=== PATIENT | male | born 1945 | race Caucasian/White ===

== ENCOUNTER 2018-06-05 09:21 | Outpatient (REF) | payer MEDICARE, OTHER, SELFPAY ==
[2018-06-05 21:09] LABS: ALT 32 U/L (12-78); AST 16 U/L (15-37); Albumin 3.9 g/dL (3.4-5.0); Alkaline Phosphatase 64 U/L (46-116); Anion Gap 9.4 mmol/L (3-11); BUN 21 mg/dL (7-18); Bilirubin, Total 0.8 mg/dL (0.2-1.0); CO2 25.6 mmol/L (21.0-32.0); CREATININE 1.04 mg/dL (0.70-1.30); Calcium 8.6 mg/dL (8.5-10.1); Chloride 105 mmol/L (98-107); Cholesterol 275 mg/dL (50-200); Glucose 112 mg/dL (70-100); HDL Cholesterol 49 mg/dL (40-60); LDL CHOLESTEROL 196 mg/dL (<100); Potassium 4.5 mmol/L (3.5-5.1); Sodium 140 mmol/L (136-145); Total Protein 7.2 g/dL (6.4-8.2); Triglyceride 140 mg/dL (30-150)
[2018-06-05 21:22] LABS: Hemoglobin A1C 6.4 % (4.5-6.2)
== END 2018-06-05 09:41 ==
LOC: NCHCN 09:21
PROVIDERS: PCP Physician Assistant Medical; Visit Provider Physician Assistant Medical
DX: E78.5 Hyperlipidemia, unspecified (principal); R73.01 Impaired fasting glucose
CPT/HCPCS: 80053; 80061; 83721; 83036

== ENCOUNTER 2018-12-04 23:38 | Outpatient (REF) | payer MEDICARE, OTHER, SELFPAY ==
[2018-12-04 21:16] LABS: BUN 22 mg/dL (7-18); CREATININE 1.05 mg/dL (0.70-1.30); Calcium 9.3 mg/dL (8.5-10.1); Chloride 104 mmol/L (98-107); Glucose 132 mg/dL (70-100); Potassium 4.4 mmol/L (3.5-5.1); Sodium 141 mmol/L (136-145)
[2018-12-04 21:23] LABS: Hemoglobin A1C 6.6 % (4.5-6.2)
== END 2018-12-04 23:58 ==
LOC: NCHCN 23:38
PROVIDERS: PCP Physician Assistant Medical; Visit Provider Physician Assistant Medical
DX: R73.01 Impaired fasting glucose (principal)
CPT/HCPCS: 80048; 83036

== ENCOUNTER 2018-12-27 01:14 | Outpatient (CLI) | payer MEDICARE, OTHER, SELFPAY ==
--- NOTE | 2018-12-27 08:07 | DI.RAD_ITS ---
SYMPTOM/DIAGNOSIS: RT WRIST PAIN, M25.531 RIGHT WRIST; There are degenerative changes involving the first metacarpal multangular and second metacarpal multangular joints. Elsewhere minimal degenerative changes involving the carpus are identified. There is no evidence of a fracture or dislocation.
== END 2018-12-27 01:34 ==
PROVIDERS: PCP Physician Assistant Medical; Visit Provider Physician Assistant Medical
DX: M25.531 Pain in right wrist (principal); M18.11 Unilateral primary osteoarthritis of first carpometacarpal joint, right hand; M19.031 Primary osteoarthritis, right wrist
CPT/HCPCS: 73110

== ENCOUNTER 2019-05-09 09:21 | Outpatient (REF) | payer MEDICARE, OTHER, SELFPAY ==
[2019-05-09 21:25] LABS: Calculated LDL 199 mg/dL; Cholesterol 288 mg/dL (50-200); HDL Cholesterol 43 mg/dL (40-60); Hemoglobin A1C 6.5 % (4.5-6.2); Triglyceride 234 mg/dL (30-150)
== END 2019-05-09 09:41 ==
LOC: NCHCN 09:21
PROVIDERS: PCP Physician Assistant Medical; Visit Provider Physician Assistant Medical
DX: E78.5 Hyperlipidemia, unspecified (principal); R73.01 Impaired fasting glucose
CPT/HCPCS: 80061; 83036

== ENCOUNTER 2019-09-10 08:20 | Outpatient (REF) | payer MEDICARE, OTHER, SELFPAY ==
[2019-09-10 21:57] LABS: ALT 16 U/L (16-63); AST 12 U/L (15-37); Albumin 4.1 g/dL (3.4-5.0); Alkaline Phosphatase 65 U/L (46-116); Anion Gap 8.9 mmol/L (3-11); BUN 19 mg/dL (7-18); Bilirubin, Total 0.8 mg/dL (0.2-1.0); CO2 29.1 mmol/L (21.0-32.0); CREATININE 1.05 mg/dL (0.70-1.30); Calcium 9.2 mg/dL (8.5-10.1); Calculated LDL 209 mg/dL; Chloride 105 mmol/L (98-107); Cholesterol 293 mg/dL (<200); Glucose 118 mg/dL (74-106); HDL Cholesterol 43 mg/dL (40-60); Potassium 4.8 mmol/L (3.5-5.1); Sodium 143 mmol/L (136-145); Total Protein 7.4 g/dL (6.4-8.2); Triglyceride 206 mg/dL (<150)
[2019-09-11 14:38] LABS: Hemoglobin A1C 6.2 % (3.8-5.6)
[2019-09-12 11:13] LABS: PSA, Screening 1.6 ng/mL (0.0-6.5)
== END 2019-09-10 08:40 ==
LOC: NCHCN 08:20
PROVIDERS: PCP Physician Assistant Medical; Visit Provider Physician Assistant Medical
DX: E78.5 Hyperlipidemia, unspecified (principal); E11.9 Type 2 diabetes mellitus without complications; R35.0 Frequency of micturition; Z12.5 Encounter for screening for malignant neoplasm of prostate
CPT/HCPCS: 80053; 80061; 84153; 83036

== ENCOUNTER 2020-08-01 11:01 | Outpatient (REF) | payer MEDICARE, OTHER, SELFPAY ==
[2020-08-01 19:29] LABS: ALT 23 U/L (16-63); AST 13 U/L (15-37); Alkaline Phosphatase 52 U/L (46-116); Anion Gap 5.9 mmol/L (3-11); BUN 19 mg/dL (7-18); Bilirubin, Total 0.6 mg/dL (0.2-1.0); CO2 29.1 mmol/L (21.0-32.0); CREATININE 0.97 mg/dL (0.70-1.30); Calculated LDL 89 mg/dL (<100); Chloride 107 mmol/L (98-107); Cholesterol 159 mg/dL (<200); Glucose 113 mg/dL (74-106); HDL Cholesterol 54 mg/dL (40-60); Potassium 4.6 mmol/L (3.5-5.1); Sodium 142 mmol/L (136-145); Triglyceride 84 mg/dL (<150)
[2020-08-01 19:30] LABS: Hemoglobin A1C 6.1 % (<5.7)
[2020-08-04 10:05] LABS: PSA, Screening 1.1 ng/mL (0.0-6.5)
== END 2020-08-01 11:21 ==
LOC: NCHCN 11:01
PROVIDERS: PCP Physician Assistant Medical; Visit Provider Physician Assistant Medical
DX: E11.9 Type 2 diabetes mellitus without complications (principal); R35.0 Frequency of micturition; E78.5 Hyperlipidemia, unspecified
CPT/HCPCS: 80053; 80061; 84153; 83036

== ENCOUNTER 2021-01-05 21:18 | Outpatient (REF) | payer MEDICARE, SELFPAY ==
[2021-01-05 14:56] LABS: Hemoglobin A1C 6.1 % (<5.7)
[2021-01-05 15:01] LABS: ALT 27 U/L (16-63); AST 15 U/L (15-37); Alkaline Phosphatase 60 U/L (46-116); Anion Gap 8.7 mmol/L (3-11); BUN 17 mg/dL (7-18); Bilirubin, Total 0.5 mg/dL (0.2-1.0); CO2 29.3 mmol/L (21.0-32.0); Calcium 9.1 mg/dL (8.5-10.1); Calculated LDL 100 mg/dL (<100); Chloride 107 mmol/L (98-107); Cholesterol 168 mg/dL (<200); Glucose 108 mg/dL (74-106); HDL Cholesterol 51 mg/dL (40-60); Potassium 4.7 mmol/L (3.5-5.1); Sodium 145 mmol/L (136-145); Triglyceride 88 mg/dL (<150)
== END 2021-01-05 21:19 | disposition home or self-care (01) ==
LOC: NCHCN 21:18
PROVIDERS: PCP Physician Assistant Medical; Visit Provider Physician Assistant Medical
DX: E11.9 Type 2 diabetes mellitus without complications (principal); E78.5 Hyperlipidemia, unspecified
CPT/HCPCS: 80053; 80061; 83036

== ENCOUNTER 2021-07-03 08:58 | Outpatient (REF) | payer MEDICARE, SELFPAY ==
[2021-07-03 15:15] LABS: ALT 25 U/L (16-63); AST 15 U/L (15-37); Alkaline Phosphatase 61 U/L (46-116); Anion Gap 9.3 mmol/L (3-11); BUN 19 mg/dL (7-18); Bilirubin, Total 0.6 mg/dL (0.2-1.0); CO2 28.7 mmol/L (21.0-32.0); CREATININE 0.9 mg/dL (0.70-1.30); Calcium 9.1 mg/dL (8.5-10.1); Chloride 105 mmol/L (98-107); Glucose 110 mg/dL (74-106); Potassium 4.6 mmol/L (3.5-5.1); Sodium 143 mmol/L (136-145); Total Protein 7.2 g/dL (6.4-8.2)
[2021-07-03 15:25] LABS: Hemoglobin A1C 6.1 % (<5.7)
[2021-07-03 22:24] LABS: PSA, Screening 1.5 ng/mL (0.0-6.5)
== END 2021-07-03 08:59 | disposition home or self-care (01) ==
LOC: NCHCN 08:58
PROVIDERS: PCP Physician Assistant Medical; Visit Provider Physician Assistant Medical
DX: Z12.5 Encounter for screening for malignant neoplasm of prostate (principal); E11.9 Type 2 diabetes mellitus without complications; E78.5 Hyperlipidemia, unspecified; R35.0 Frequency of micturition
CPT/HCPCS: 80053; 84153; 83036

== ENCOUNTER 2021-08-27 09:33 | Outpatient (CLI) | payer MEDICARE, SELFPAY ==
--- NOTE | 2021-08-27 08:15 | DI.RAD_ITS ---
Exam(s) XR KNEE RT 4V AP,LAT,LEONOR,PAT EXAM: XR KNEE RT 4V AP,LAT,LEONOR,PAT CLINICAL HISTORY: pain. TECHNIQUE: 2D digital imaging was performed. COMPARISON: No exams were available for comparison FINDINGS: BONES: No acute fracture is present. No bony destructive lesion is seen. JOINTS: The knee is normally aligned. No joint effusion is seen. Mild narrowing lateral femoral tibia l joint space. Mild spurring femoral condyles and tibial plateaus. Patellofemoral joint space well maintained. Mild to moderate periarticular spurring. SOFT TISSUE: Normal. IMPRESSION: Mild degenerative changes. DATA REPOSITORY: RADIATION DOSE DELIVERED:
== END 2021-08-27 09:34 | disposition home or self-care (01) ==
LOC: DIORS 09:33
PROVIDERS: PCP Physician Assistant Medical; Referring Provider Physician Assistant Medical; Visit Provider Student in an Organized Health Care Education/Training Program
DX: M17.11 Unilateral primary osteoarthritis, right knee (principal); M25.511 Pain in right shoulder
CPT/HCPCS: 99203; 73564

== ENCOUNTER 2022-02-02 15:23 | Outpatient (REF) | payer MEDICARE, SELFPAY ==
[2022-02-02 16:07] LABS: ALT 28 U/L (16-63); AST 23 U/L (15-37); Albumin 4.1 g/dL (3.4-5.0); Alkaline Phosphatase 64 U/L (46-116); Anion Gap 11.5 mmol/L (3-11); CO2 24.5 mmol/L (21.0-32.0); Calcium 8.8 mg/dL (8.5-10.1); Chloride 107 mmol/L (98-107); Cholesterol 162 mg/dL (<200); Glucose 117 mg/dL (74-106); Potassium 4.4 mmol/L (3.5-5.1); Sodium 143 mmol/L (136-145); Total Protein 7.2 g/dL (6.4-8.2)
[2022-02-02 16:31] LABS: BUN 25 mg/dL (7-18); Bilirubin, Total 0.5 mg/dL (0.2-1.0); Calculated LDL 91 mg/dL (<100); HDL Cholesterol 58 mg/dL (40-60); Triglyceride 66 mg/dL (<150)
== END 2022-02-02 15:24 | disposition home or self-care (01) ==
LOC: NCHCN 15:23
PROVIDERS: PCP Physician Assistant Medical; Visit Provider Physician Assistant Medical
DX: E78.5 Hyperlipidemia, unspecified (principal); E11.9 Type 2 diabetes mellitus without complications
CPT/HCPCS: 80053; 80061; 83036

== ENCOUNTER → 2022-02-08 02:39 | Outpatient (CLI) | payer MEDICARE, SELFPAY ==
--- NOTE | 2022-02-08 10:02 | DI.RAD_ITS ---
Exam(s) RF BARIUM SWALLOW EXAM: RF BARIUM SWALLOW CLINICAL HISTORY: DYSPHAGIA, R13.10 TECHNIQUE: 2D and realtime digital imaging was performed. Lateral mold construction supervisor view of the neck. PA view t he chest. CONTRAST MATERIAL: Thick and thin barium and barium tablet were administered. COMPARISON: CR RIGHT SHOULDER COMPLETE from 12/06/2017 FINDINGS: CR RIGHT SHOULDER COMPLETE from 12/06/2017 Esophagus: The patient swallowed barium without difficulty. Noevidence for mucosal erosions. Nofold thickening. No mass is visible. Nostricture. Motility: There is a normal primary stripping wave. Minimal tertiary contractions were noted. There is no hiatal hernia. Mild gastroesophageal reflux was observed with the patient supine exam. Fluoro time 68 seconds IMPRESSION: Mild gastroesophageal reflux. RADIATION DOSE DELIVERED: suzanne Kemp=15.8 mGy
[2022-02-08] MEDS: Barium Sulfate 60% W/V 355 ML BTL PO (10:04)
[2022-02-08] MEDS: Barium Sulfate 700 MG TAB PO (10:04)
[2022-02-08] MEDS: Simethicone/Sod Bicarb/Cit Ac, 4 gram PACKET 1 PACKET PO (10:05)
== END ==
PROVIDERS: PCP Physician Assistant Medical; Visit Provider Physician Assistant Medical
DX: K21.9 Gastro-esophageal reflux disease without esophagitis (principal)
CPT/HCPCS: 74221; J3490

== ENCOUNTER 2022-07-12 14:09 | Outpatient (REF) | payer MEDICARE, SELFPAY ==
[2022-07-12 18:20] LABS: ALT 18 U/L (16-63); AST 18 U/L (15-37); Albumin 4.1 g/dL (3.4-5.0); Alkaline Phosphatase 59 U/L (46-116); Anion Gap 7.7 mmol/L (3-11); BUN 19 mg/dL (7-18); Bilirubin, Total 0.6 mg/dL (0.2-1.0); CO2 27.3 mmol/L (21.0-32.0); Calculated LDL 91 mg/dL (<100); Chloride 106 mmol/L (98-107); Cholesterol 159 mg/dL (<200); Estimated GFR 78.98 (mL/min/1.73m2); Glucose 105 mg/dL (74-106); HDL Cholesterol 52 mg/dL (40-60); Potassium 4.5 mmol/L (3.5-5.1); Sodium 141 mmol/L (136-145); Total Protein 7.7 g/dL (6.4-8.2); Triglyceride 82 mg/dL (<150)
[2022-07-12 18:33] LABS: Hemoglobin A1C 6.1 % (<5.7)
[2022-07-13 18:17] LABS: PSA, Screening 1.3 ng/mL (<=6.5)
== END 2022-07-12 14:10 | disposition home or self-care (01) ==
LOC: NCHCN 14:09
PROVIDERS: PCP Physician Assistant Medical; Visit Provider Physician Assistant Medical
DX: E11.9 Type 2 diabetes mellitus without complications (principal); R35.0 Frequency of micturition; E78.5 Hyperlipidemia, unspecified
CPT/HCPCS: 80053; 80061; 84153; 83036

== ENCOUNTER → 2022-08-20 00:40 | Outpatient (CLI) | payer MEDICARE, SELFPAY ==
--- NOTE | 2022-08-20 | DI.RAD_ITS ---
Exam(s) XR CHEST 2V PA LATERAL EXAM: XR CHEST 2V PA LATERAL CLINICAL HISTORY: COUGH, R05.8,H/O COVID U07.1 IN DECEMBER. TECHNIQUE: 2D digital imaging was performed. COMPARISON: CR,RF RF BARIUM SWALLOW from 02/08/2022 FINDINGS: 2 views: Heart size is normal. The mediastinum is not widened. Lungs are clear. No infiltrates nor pleural effusions. IMPRESSION: No acute pulmonary findings. DATA REPOSITORY: RADIATION DOSE DELIVERED:
== END ==
PROVIDERS: PCP Physician Assistant Medical; Visit Provider Physician Assistant Medical
DX: R05.8 Other specified cough (principal); Z86.16 Personal history of COVID-19
CPT/HCPCS: 71046

== ENCOUNTER 2023-02-23 10:12 | Outpatient (CLI) | payer MEDICARE, SELFPAY ==
--- NOTE | 2023-02-23 | DI.RAD_ITS ---
Exam(s) XR KNEE LT 3V AP,LAT,LEONOR EXAM: XR KNEE LT 3V AP,LAT,LEONOR CLINICAL HISTORY: LT KNEE PAIN, M25.562. TECHNIQUE: 2D digital imaging was performed of the left knee. Three images were obtained. AP, late ral and PA tunnel views were obtained. COMPARISON: No priors for comparison. FINDINGS: BONES: No acute fracture is present. No bony destructive lesion is seen. JOINTS: The knee is normally aligned. There is a small joint effusion. There is mild spurring of the posterior patella. There is mild narrowing of the femoral tibial joint. SOFT TISSUE: Normal. IMPRESSION: Mild degenerative changes of the knee. Small joint effusion. DATA REPOSITORY: RADIATION DOSE DELIVERED:
== END 2023-02-23 10:32 ==
LOC: DI 10:14
PROVIDERS: PCP Physician Assistant Medical; Visit Provider Physician Assistant Medical
DX: M17.12 Unilateral primary osteoarthritis, left knee (principal); M25.462 Effusion, left knee
CPT/HCPCS: 73562

== ENCOUNTER → 2023-03-24 12:48 | Outpatient (BNVA) | payer MEDICARE, SELFPAY | PROVIDERS: PCP Physician Assistant Medical; Referring Provider Physician Assistant Medical | DX: M17.12 Unilateral primary osteoarthritis, left knee (principal) | CPT/HCPCS: 20610; J1040 ==

== ENCOUNTER 2023-03-29 19:07 | Outpatient (REF) | payer MEDICARE, SELFPAY ==
[2023-03-29 19:35] LABS: Abs Immature Grans 0.03 10^3/uL (0.0-0.06); Absolute Basophil Count 0.04 10^3/uL (0.0-0.2); Absolute Eosinophil Count 0.06 10^3/uL (0.0-0.7); Absolute Lymphocyte Count 1.67 10^3/uL (1.2-3.4); Absolute Neutrophil Count 7.08 10^3/uL (1.2-6.7); Basophils % 0.4; Eosinophils % 0.6; HCT 46.1 % (40.0-50.0); HGB 15.3 g/dL (13.5-17.5); Immature Grans % 0.3; Lymphocytes % 17.3; MCH 30.4 pg (27.0-33.0); MCHC 33.2 % (32.0-36.0); MCV 92 fL (80-95); MPV 9.6 fL (8.0-11.0); Monocytes % 8.3; Neutrophils % 73.1; Platelet Count 294 10^3/uL (130-400); RBC 5.04 10^6/uL (4.36-5.78); RDW-SD 40.2 fL; WBC 9.68 10^3/uL (4.4-10.8)
[2023-03-29 20:30] LABS: Calculated LDL 85 mg/dL (<100); Cholesterol 158 mg/dL (<200); HDL Cholesterol 61 mg/dL (40-60); TSH (W/Ref FT4) 0.87 uIU/mL (0.36-3.74); Triglyceride 63 mg/dL (<150)
[2023-03-29 20:43] LABS: Hemoglobin A1C 5.8 % (<5.7)
[2023-04-01 09:03] LABS: ALT 24 U/L (16-63); AST 18 U/L (15-37); Albumin 4.4 g/dL (3.4-5.0); Alkaline Phosphatase 58 U/L (46-116); Anion Gap 12.9 mmol/L (3-11); BUN 25 mg/dL (7-18); Bilirubin, Total 0.7 mg/dL (0.2-1.0); CO2 23.1 mmol/L (21.0-32.0); CREATININE 0.9 mg/dL (0.70-1.30); Calcium 9.3 mg/dL (8.5-10.1); Chloride 104 mmol/L (98-107); Estimated GFR 89.07 (mL/min/1.73m2); Glucose 99 mg/dL (74-106); Potassium 4.4 mmol/L (3.5-5.1); Sodium 140 mmol/L (136-145); Total Protein 7.6 g/dL (6.4-8.2)
== END 2023-03-29 19:08 | disposition home or self-care (01) ==
LOC: NCHCN 19:07
PROVIDERS: PCP Physician Assistant Medical; Visit Provider Physician Assistant Medical
DX: E78.5 Hyperlipidemia, unspecified (principal); E11.9 Type 2 diabetes mellitus without complications; M25.562 Pain in left knee
CPT/HCPCS: 80053; 80061; 83036; 84443; 85025

== ENCOUNTER → 2023-05-11 02:53 | Outpatient (CLI) | payer MEDICARE, SELFPAY ==
--- NOTE | 2023-05-11 13:45 | DI.MRI_ITS ---
Exam(s) MR LOWER JOINT LT WO EXAM: MR LOWER JOINT LT WO CLINICAL HISTORY: PAIN,OA LT KNEE, M17.12. TECHNIQUE: Multiplanar multisequence MRI was performed. COMPARISON: CR XR KNEE LT 3V AP,LAT,LEONOR from 02/23/2023 FINDINGS: BONES: There is no fracture or contusion pattern. JOINTS: There is marked thinning of the articular cartilage in the medial femoral tibial joint with s ubchondral edema present. There is also thinning of the articular cartilage and subchondral edema in the lateral patellofemoral joint. There is a joint effusion. There does appear to be a few loose b odies in the joint space. TENDONS: Extensor mechanism: Unremarkable. Medial retinaculum: Unremarkable. Lateral retinaculum: Unremarkable. Popliteus: Unremarkable. MUSCLES: Unremarkable. There is a small amount of fluid seen around the semi tendinosis tendon. MENISCI: There is a tear of the posterior horn and root of the medial meniscus. There also is abnorm al signal seen in the root of the lateral meniscus suspicious for tear. SOFT TISSUES: There is mild edema in the soft tissues particularly in the medial posterior knee. LIGAMENTS: Anterior Cruciate: Unremarkable. Posterior Cruciate: Unremarkable. Medial Collateral:MCL sprain. No tear. Lateral Collateral: Unremarkable. OTHER: IMPRESSION: 1. Degenerative changes of the knee particularly involving the patellofemoral and medial femoral tibi al joint. 2. Tear of the posterior horn and root of the medial meniscus and the root of the lateral meniscus. 3. Joint effusion with several loose bodies. 4. MCL sprain. DATA REPOSITORY:
== END ==
PROVIDERS: PCP Physician Assistant Medical; Visit Provider Student in an Organized Health Care Education/Training Program
DX: M17.12 Unilateral primary osteoarthritis, left knee (principal); S83.282A Other tear of lateral meniscus, current injury, left knee, initial encounter; S83.412A Sprain of medial collateral ligament of left knee, initial encounter; X58.XXXA Exposure to other specified factors, initial encounter
CPT/HCPCS: 73721

== ENCOUNTER → 2023-05-26 09:50 | Outpatient (BNVA) | payer MEDICARE, SELFPAY | PROVIDERS: PCP Physician Assistant Medical; Referring Provider Physician Assistant Medical; Visit Provider Student in an Organized Health Care Education/Training Program | DX: M17.12 Unilateral primary osteoarthritis, left knee (principal) | CPT/HCPCS: 99213 ==

== ENCOUNTER → 2023-06-02 14:20 | Outpatient (BNVA) | payer MEDICARE, SELFPAY | PROVIDERS: PCP Physician Assistant Medical; Referring Provider Physician Assistant Medical | DX: M17.12 Unilateral primary osteoarthritis, left knee (principal) | CPT/HCPCS: 20610; J7318 ==

== ENCOUNTER 2023-09-08 03:52 | Outpatient (CLI) | payer MEDICARE, SELFPAY ==
[2023-09-08 09:29] LABS: HCT 47.4 % (40.0-50.0); HGB 15.6 g/dL (13.5-17.5); MCH 30.4 pg (27.0-33.0); MCHC 32.9 % (32.0-36.0); MCV 92 fL (80-95); MPV 9.1 fL (8.0-11.0); Platelet Count 247 10^3/uL (130-400); RBC 5.14 10^6/uL (4.36-5.78); RDW 11.9 % (11.8-14.1); RDW-SD 40.3 fL; WBC 6.69 10^3/uL (4.4-10.8)
[2023-09-08 09:47] LABS: Hemoglobin A1C 6.1 % (<5.7)
[2023-09-08 10:27] LABS: ALT 21 U/L (16-63); AST 12 U/L (15-37); Albumin 4.1 g/dL (3.4-5.0); Alkaline Phosphatase 57 U/L (46-116); Anion Gap 5.7 mmol/L (3-11); BUN 22 mg/dL (7-18); Bilirubin, Total 0.8 mg/dL (0.2-1.0); CO2 32.3 mmol/L (21.0-32.0); CREATININE 1.1 mg/dL (0.70-1.30); Calcium 9.3 mg/dL (8.5-10.1); Chloride 105 mmol/L (98-107); Estimated GFR 70.01 (mL/min/1.73m2); Glucose 124 mg/dL (74-106); Potassium 4.4 mmol/L (3.5-5.1); Sodium 143 mmol/L (136-145); Total Protein 7.8 g/dL (6.4-8.2)
[2023-09-08 10:28] LABS: Calculated LDL 101 mg/dL (<100); Cholesterol 180 mg/dL (<200); HDL Cholesterol 63 mg/dL (40-60); Triglyceride 81 mg/dL (<150)
== END 2023-09-08 03:53 | disposition home or self-care (01) ==
LOC: LBO 03:52
PROVIDERS: PCP Physician Assistant Medical; Visit Provider Student in an Organized Health Care Education/Training Program
DX: M17.12 Unilateral primary osteoarthritis, left knee (principal); Z01.818 Encounter for other preprocedural examination
CPT/HCPCS: 36415; 80053; 80061; 84153; 85027; 83036

== ENCOUNTER 2023-09-08 13:12 | Outpatient (CLI) | payer MEDICARE, SELFPAY ==
--- NOTE | 2023-09-08 08:30 | DI.RAD_ITS ---
Exam(s) XR KNEE LT 1V XR STANDING ALIGNMENT EXAM: XR STANDING ALIGNMENT and XR knee LT 1 V CLINICAL HISTORY: OA L KNEE. TECHNIQUE: 2D digital imaging was performed. Six images were obtained. COMPARISON: CR XR KNEE RT 4V AP,LAT,LEONOR,PAT from 08/27/2021 CR XR KNEE LT 3V AP,LAT,LEONOR from 02/23/2023 FINDINGS: BONES: There are gxjz-sy-qdyqczhz degenerative changes in the hips bilaterally, right greater than le ft. There is an area of sclerosis in the superior left acetabulum. This may represent a bone island . Follow-up recommended if there is history of cancer in this patient. In the left knee, there are mild degenerative changes seen predominantly at the patellofemoral joint with air osteophytes present . There is a small suprapatellar joint effusion on the left. There is a well corticated osseous den sity adjacent to the medial proximal tibia which appears chronic. Minimal degenerative changes are s een in the right knee. The ankles are well maintained.There is no significant leg length discrepancy . SOFT TISSUE: Normal. IMPRESSION: Mild bilateral knee arthrosis. DATA REPOSITORY: RADIATION DOSE DELIVERED:
--- NOTE | 2023-09-08 17:23 | PDOC.ANES ---
Date of service: 09/08/23 Time of Service: 10:35 Anesthesia Note Report Anesthesia Note: Called Mr. Arnold at home at the request of DAVID Wood regarding several anesthesia specific questions the patient had regarding his upcoming scheduled TKA. I introduced myself to the patient as well as my role in the department. The patient was specific in his desire to gain some knowledge of the specific medications he would be receiving during his scheduled TKA. The patient voiced his refusal of both Ketamine and anxiety reducing medications with no specific detailed concerns to this request, other than he would not like them in his body. A description of the elective nerve block procedure was reviewed as well as the process of a spinal anesthetic. The patient declined to hear details regarding general anesthesia, but voiced understanding that it may be required if he elected a spinal and it were to fail. The patient's questions were answered to the best of my ability and Mr. Arnold was encouraged to call back to the department with any additional questions or follow-up regarding what was discussed today.
== END 2023-09-08 13:13 | disposition home or self-care (01) ==
LOC: DIORS 13:13
PROVIDERS: PCP Physician Assistant Medical; Referring Provider Physician Assistant Medical; Visit Provider Physician Assistant
DX: M17.12 Unilateral primary osteoarthritis, left knee (principal); Z01.818 Encounter for other preprocedural examination
CPT/HCPCS: 73560; 77073

== ENCOUNTER → 2023-12-02 08:48 | Outpatient (BNVA) | payer MEDICARE, SELFPAY | PROVIDERS: PCP Physician Assistant Medical; Referring Provider Physician Assistant Medical | DX: M17.12 Unilateral primary osteoarthritis, left knee (principal) | CPT/HCPCS: 20610; J7318 ==

== ENCOUNTER 2024-04-02 16:56 | Outpatient (REF) | payer MEDICARE, SELFPAY ==
[2024-04-02 16:21] LABS: Hemoglobin A1C 6.3 % (<5.7)
[2024-04-02 22:34] LABS: PSA, Screening 2.5 ng/mL (<=6.5)
== END 2024-04-02 16:57 | disposition home or self-care (01) ==
LOC: NCHCN 16:56
PROVIDERS: PCP Physician Assistant Medical; Visit Provider Physician Assistant Medical
DX: E11.9 Type 2 diabetes mellitus without complications (principal); N40.1 Benign prostatic hyperplasia with lower urinary tract symptoms; F52.21 Male erectile disorder; Z12.5 Encounter for screening for malignant neoplasm of prostate
CPT/HCPCS: 84153; 83036

== ENCOUNTER → 2024-06-01 08:17 | Outpatient (BNVA) | payer MEDICARE, SELFPAY | PROVIDERS: PCP Physician Assistant Medical; Referring Provider Physician Assistant Medical ==

== ENCOUNTER 2024-09-11 11:25 | Outpatient (REF) | payer MEDICARE, SELFPAY ==
[2024-09-11 16:29] LABS: ALT 14 U/L (16-63); AST 14 U/L (15-37); Albumin 3.9 g/dL (3.4-5.0); Anion Gap 5.9 mmol/L (3-11); BUN 20 mg/dL (7-18); Bilirubin, Total 1.02 mg/dL (0.2-1.0); CO2 30.1 mmol/L (21.0-32.0); CREATININE 1.1 mg/dL (0.70-1.30); Calcium 9.3 mg/dL (8.5-10.1); Calculated LDL 99 mg/dL (<100); Chloride 107 mmol/L (98-107); Cholesterol 178 mg/dL (<200); Estimated GFR 69.57 (mL/min/1.73m2); Glucose 116 mg/dL (74-106); HDL Cholesterol 61 mg/dL (40-60); Hemoglobin A1C 6.2 % (<5.7); Potassium 4.5 mmol/L (3.5-5.1); Sodium 143 mmol/L (136-145); Total Protein 7.5 g/dL (6.4-8.2); Triglyceride 93 mg/dL (<150)
[2024-09-11 16:43] LABS: Alkaline Phosphatase 64 U/L (46-116)
== END 2024-09-11 11:26 | disposition home or self-care (01) ==
LOC: NCHCN 11:25
PROVIDERS: PCP Physician Assistant Medical; Visit Provider Physician Assistant Medical
DX: E78.5 Hyperlipidemia, unspecified (principal); E11.9 Type 2 diabetes mellitus without complications
CPT/HCPCS: 80053; 80061; 83036

== ENCOUNTER 2024-09-13 03:51 | Outpatient (CLI) | payer MEDICARE, SELFPAY ==
--- NOTE | 2024-09-13 08:10 | DI.US_ITS ---
Exam(s) US AAA SCREENING EXAM: US AAA SCREENING CLINICAL HISTORY: Unspecified disorder of circulatory system-I99.8, vascular disorder COMPARISON: US ABDOMEN ULTRASOUND (P) from 03/07/2013 FINDINGS: Abdominal Aorta: Proximal: 2.5 x 2.5 cm Mid: 2.2 x 2.1 cm Distal: 2.0 x 2.0 cm Iliac's: Right: 1.3 x 1.2 cm Left: 1.6 x 1.5 cm No significant atherosclerotic disease is seen. IMPRESSION: No evidence of abdominal aortic aneurysm. DATA REPOSITORY:
== END 2024-09-13 04:11 ==
PROVIDERS: PCP Physician Assistant Medical; Visit Provider Physician Assistant Medical
DX: I99.9 Unspecified disorder of circulatory system (principal); Z13.6 Encounter for screening for cardiovascular disorders
CPT/HCPCS: 76706

== ENCOUNTER 2025-01-02 00:48 | Outpatient (CLI) | payer MEDICARE, SELFPAY ==
--- NOTE | 2025-01-02 09:05 | DI.RAD_ITS ---
Exam(s) XR SHOULDER RT COMPLETE 2+V EXAM: XR SHOULDER RT COMPLETE 2+V CLINICAL HISTORY: RT SHOULDER PAIN,M25.511. TECHNIQUE: 2D digital imaging was performed of the right shoulder. Five images were obtained. AP, Grashey, Y-view and axillary views were obtained. COMPARISON: No exams were available for comparison FINDINGS: BONES: No acute fracture is present. No bony destructive lesion is seen. Spurring is seen in the late ral aspect of the acromion. JOINTS: No dislocation present. There are degenerative changes seen at the glenohumeral and acromiocl avicular joints characterized by joint space narrowing and osteophytes. There is narrowing of the ac romial humeral interval. This can be seen with chronic rotator cuff tear. SOFT TISSUE: Normal. IMPRESSION: Degenerative changes seen in the right shoulder. Narrowing of the acromial humeral interval which ma y reflect rotator cuff tear. MRI may be obtained for further evaluation. DATA REPOSITORY: RADIATION DOSE DELIVERED:
== END 2025-01-02 01:08 ==
LOC: DI 00:48
PROVIDERS: PCP Physician Assistant Medical; Visit Provider Physician Assistant Medical
DX: M19.011 Primary osteoarthritis, right shoulder (principal)
CPT/HCPCS: 73030

== ENCOUNTER → 2025-07-30 01:40 | Outpatient (CLI) | payer MEDICARE, SELFPAY ==
--- NOTE | 2025-07-30 09:00 | DI.RAD_ITS ---
Exam(s) XR CERVICAL SPINE COMP 4-5V EXAM: XR CERVICAL SPINE COMP 4-5V CLINICAL HISTORY: CERVICAL RADICULOPATHY,M54.12. TECHNIQUE: 2D digital imaging was performed. Five images were obtained. AP, odontoid, lateral and bilateral oblique images were obtained. COMPARISON: CR,RF RF BARIUM SWALLOW from 02/08/2022 FINDINGS: The odontoid is intact. The lateral masses are well aligned. There is normal alignment of the cervical spine. There is disc space narrowing again seen at C5- C6 and C6-C7. The disc space narrowing at C5-C6 has progressed. There are endplate osteophytes seen from C 4 5 through C6-C7. There are degenerative changes of the facets throughout the cervical spine. No acute fracture or subluxation is present. There is neural foraminal narrowing on the right at C3-4 and C4-C5. There is mild neural foraminal narrowing at C6-C7. On the left there is marked neural foraminal narrowing at C5-6 and C6-C7 and moderate narrowing at C4-C5. The cervical thoracic junction is well maintained. The prevertebral soft tissues are unremarkable. Lung apices are clear. IMPRESSION: Moderately severe cervical spondylosis. DATA REPOSITORY: RADIATION DOSE DELIVERED:
== END ==
LOC: DI 01:41
PROVIDERS: PCP Physician Assistant Medical; Visit Provider Physician Assistant Medical
DX: M47.812 Spondylosis without myelopathy or radiculopathy, cervical region (principal)
CPT/HCPCS: 72050

== ENCOUNTER → 2025-08-26 08:06 | Outpatient (CLI) | payer MEDICARE, SELFPAY ==
--- NOTE | 2025-08-26 | DI.MRI_ITS ---
Exam(s) MR CERVICAL SPINE WO EXAM: MR CERVICAL SPINE WO CLINICAL HISTORY: RADICULOPATHY CERVICAL REGION M54.12 TECHNIQUE: Multiplanar multisequence MRI of the cervical spine was performed without intravenous contrast. COMPARISON: CR XR CERVICAL SPINE COMP 4-5V from 07/30/2025 FINDINGS: BONES: Vertebral body heights are maintained. Intervertebral disc spaces are normal. There is straightening of the normal cervical lordosis. Degenerative endplate signal changes are present at multiple levels in the cervical spine but most marked at C4-5, C5-6 and C6-C7. CERVICAL CORD: Craniovertebral junction is unremarkable. The cervical cord is normal size and signal intensity. SOFT TISSUES: Unremarkable. C2-3: No disc herniation or bulge is identified. No significant central spinal canal or neural foraminal stenosis. C3-4: No disc herniation or bulge is identified. Degenerative changes of the uncovertebral joint causes mild left neural foraminal stenosis and marked right neural foraminal stenosis. C4-5: There are endplate osteophytes present. There is a diffuse disc bulge. There is mild narrowing of the central spinal canal. Degenerative changes of the uncovertebral joints on the left causing marked bilateral neural foraminal stenosis. C5-6: There osteophytes at the endplates and a diffuse disc bulge. There is mild narrowing of the central spinal canal. Degenerative changes of the uncovertebral joints cause marked bilateral neural foraminal stenosis. C6-7: There are prominent osteophytes at the endplates and a diffuse disc bulge. There is no significant central spinal canal stenosis. There is marked left neural foraminal stenosis. There is a moderately severe right neural foraminal stenosis. C7-T1: No disc herniation or bulge is identified. No significant central spinal canal or neural foraminal stenosis. IMPRESSION: Multilevel degenerative changes throughout the cervical spine causes central spinal canal and neural foraminal stenosis as described above. DATA REPOSITORY:
== END ==
LOC: DI 08:07
PROVIDERS: PCP Physician Assistant Medical; Visit Provider Physician Assistant Medical
DX: M48.02 Spinal stenosis, cervical region (principal); M54.12 Radiculopathy, cervical region
CPT/HCPCS: 72141

== ENCOUNTER → 2025-09-02 13:50 | Outpatient (CLI) | payer MEDICARE, SELFPAY ==
--- NOTE | 2025-09-02 | DI.MRI_ITS ---
Exam(s) MR UPPER JOINT RT WO EXAM: MR UPPER JOINT RT WO CLINICAL HISTORY: M75.101 Unspecified rotator cuff tear or rupture RT shoulder,not truamatic. TECHNIQUE: Multiplanar multisequence MRI was performed. COMPARISON: Plain films 02 January 2025 FINDINGS: Exam is limited by motion BONES: There is no fracture or contusion pattern. There is spurring at the tip of the acromion as well as lesser tuberosity. JOINTS:The acromioclavicular joint shows moderate degenerative inferior spurring. The glenohumeral joint shows a small amount of fluid. The humeral head is somewhat superiorly positioned and articulates with the undersurface of the acromion. TENDONS: Supraspinatus: Full-thickness tear with retraction to the level of the glenoid. Severe muscle atrophy consistent with longstanding, chronic rotator cuff tear. Infraspinatus: Full-thickness tear with retraction to the level of the glenoid. Subscapularis: Unremarkable. Teres Minor: Intact. Biceps and Tasley: There is thickening and intermediate signal in the proximal biceps tendon, adjacent to the humeral head, consistent with tendinosis. MUSCLES: Severe atrophy of the supraspinatus, infraspinatus and teres minor muscles. GLENOID LABRUM: Degenerative changes. SOFT TISSUES: Unremarkable. BURSAE: Subacromial and subdeltoid bursae . IMPRESSION: Full-thickness tears with retraction and severe muscle atrophy of the supraspinatus and infraspinatus muscles consistent with chronic rotator cuff tears. There is also severe atrophy of the teres minor muscle. Tendinosis of the proximal biceps tendon. DATA REPOSITORY:
== END ==
LOC: DI 13:50
PROVIDERS: PCP Physician Assistant Medical; Visit Provider Physician Assistant Medical
DX: M75.121 Complete rotator cuff tear or rupture of right shoulder, not specified as traumatic (principal); M75.22 Bicipital tendinitis, left shoulder
CPT/HCPCS: 73221